=== PATIENT | female | born 1960 | race Caucasian/White ===

== ENCOUNTER 2021-08-11 17:55 | Emergency (ER) | payer OTHER, SELFPAY ==
[2021-08-11 18:11] VITALS: BP 114/65; PULSE 95; RESP 22; TEMP 36.5; O2SAT 97
--- NOTE | 2021-08-11 18:14 | DI.RAD.S_ITS ---
PROCEDURE: XR CHEST 2V INDICATIONS: cough/soa TECHNIQUE: 2 views of the chest were acquired. COMPARISON: None. FINDINGS: Surgical changes and devices: None. Lungs and pleura: Patchy bilateral pulmonary infiltrates. Pleural spaces are clear. Mediastinum: Mediastinal contours are normal. Heart size is normal. Bones and chest wall: No suspicious bony abnormalities. Soft tissues appear unremarkable. IMPRESSION: Patchy bilateral pulmonary infiltrates consistent with pneumonia Approved by: Jace Santillan M.D. on 08/11/2021 at 17:44
[2021-08-11 20:11] VITALS: PULSE 92; O2SAT 97
[2021-08-11 20:12] VITALS: BP 159/73; PULSE 91; O2SAT 95
--- NOTE | 2021-08-11 20:27 | ED_ITS ---
HPI - General Adult General Chief complaint: Shortness of Breath/Dyspnea Stated complaint: cough, short of breath, headache, + Covid Time Seen by Provider: 08/11/21 20:11 Source: patient Mode of arrival: Ambulatory History of Present Illness HPI narrative: 61-year-old female. Unvaccinated against COVID-19. Is known COVID positive. Here for evaluation of a cough and shortness of breath and headache and generally not feeling well. Related Data Previous Rx's Medication Instructions Recorded benzonatate 100 mg capsule 100 mg PO TID PRN #21 cap 08/11/21 (Tawny Conrad) Review of Systems Constitutional Constitutional: Reports fatigue, Reports fever(s) and Reports headache(s) ENT Ears, Nose, Mouth, and Throat: Reports headache(s) Cardiovascular Cardiovascular: Denies chest pain and Reports dyspnea Respiratory Respiratory: Reports chest congestion, Reports cough and Reports dyspnea Gastrointestinal Gastrointestinal: Reports system reviewed and no additional complaints, except as documented Genitourinary Genitourinary: Reports system reviewed and no additional complaints, except as documented Integumentary/Breasts Skin/Breast: Reports system reviewed and no additional complaints, except as documented Neurologic Neurologic: Reports system reviewed and no additional complaints, except as documented and Reports headache(s) Endocrine Endocrine: Reports fatigue Hematologic/Lymphatic On Anticoagulants: No Patient History Medical History COVID-19 Social History Smoking Status: Never smoker Smoking Status: Never smoker Exam Initial Vital Signs Initial Vital Signs: Vital Signs Temperature 97.7 F 08/11/21 18:11 Pulse Rate 95 H 08/11/21 18:11 Respiratory Rate 22 08/11/21 18:11 Blood Pressure 114/65 08/11/21 18:11 Pulse Oximetry 97 08/11/21 18:11 Const General: cooperative and comfortable Limitations: mental status not altered HENWI Head: normal to inspection and normocephalic Resp Effort & Inspection: normal respiratory effort and not tachypneic Auscultation: clear to auscultation bilaterally Cardio Rate: regular rate Rhythm: regular rhythm Skin General: no rashes or lesions noted Neuro General: patient alert, patient awake and patient oriented x3 Extrem General: capillary refill normal Psych Appearance: grossly normal and well kempt Course Orders Ordered: ED Orders 08/11/21 18:14 Chest [XR chest 2V] Stat Vital Signs Vital signs: Vital Signs - 8 hr 08/11/21 18:11 08/11/21 20:11 08/11/21 20:12 Temperature 97.7 F Pulse Rate 95 H 92 H 91 H Respiratory Rate 22 Blood Pressure 114/65 159/73 H Pulse Oximetry 97 97 95 Medical Decision Making Imaging Data Chest x-ray: Radiologist's Impression: [address] [id number] ReportSigned Patient: Isis Townsend SMR#: [id number]: [id number]/Sex: 61 / FDate of Service: 08/11/21Loc: EDAccession Number: [id number] Procedure: XR chest 2V Ordering Provider: Mitchell Truong D.O. PROCEDURE: XR CHEST 2V INDICATIONS: cough/soa TECHNIQUE: 2 views of the chest were acquired. COMPARISON: None. FINDINGS: Surgical changes and devices: None. Lungs and pleura: Patchy bilateral pulmonary infiltrates. Pleural spaces are clear. Mediastinum: Mediastinal contours are normal. Heart size is normal. Bones and chest wall: No suspicious bony abnormalities. Soft tissues appear unremarkable. IMPRESSION: Patchy bilateral pulmonary infiltrates consistent with pneumonia Approved by: Jace Santillan M.D. on 08/11/2021 at 17:44 MDM Narrative Medical decision making narrative: Patient is known COVID positive. Chest x-ray consistent with COVID. Patient not hypoxic. Not tachypneic. Not requiring oxygen. Unfortunately not much more we can do for the patient given her COVID positive status. Was sent home with Tawny Conrad to see if this does not improve her cough. She was given return precautions and follow-up instructions. She expressed understanding and agreement. Discharge Plan Departure Patient Disposition: Home Clinical Impression: COVID-19 Instructions: DI for Cough -- Adult, DI for COVID-19 (Suspected or Confirmed ) Activity Restrictions/Additional Instructions: Unfortunately other than trying some [id number] medications there was not much we can do to treat the symptoms of COVID. You can take Tylenol for any headaches or body aches. It is important that she stay hydrated. Check your oxygen saturations frequently at home. If they are consistently below 90 than you do need to return to the emergency department. Prescriptions: New benzonatate [Tessalon Perles] 100 mg capsule 100 mg PO TID PRN (Reason: cough) Qty: 21 RF: 0
== END 2021-08-11 20:32 | disposition home or self-care (01) ==
PROVIDERS: Emergency Provider Emergency Medicine
DX: U07.1 COVID-19 (principal)
CPT/HCPCS: 71046; 99281; 99283